=== PATIENT | male | born 1965 | race Caucasian/White ===

== ENCOUNTER 2019-02-15 07:01 | Inpatient (IN) | payer OTHER ==
[2019-02-15] MEDS ORDERED: METOCLOPRAMIDE 10 MG INJ (08:10)
[2019-02-15] MEDS ORDERED: FENTAnyl 50 MCG/ML VIAL (08:10)
[2019-02-15] MEDS ORDERED: LIDOCAINE 2% (SDV) 5 ML INJ (08:10)
[2019-02-15] MEDS ORDERED: MIDAZOLAM 1 MG/ML 2 ML INJ (08:10)
[2019-02-15] MEDS ORDERED: PROPOFOL 20 ML (08:10)
[2019-02-15] MEDS ORDERED: SUCCINYLCHOLINE CHLORIDE 100 MG/5 ML SYG IV (08:11)
[2019-02-15] MEDS ORDERED: ONDANSETRON 4 MG INJ (08:11)
[2019-02-15] MEDS ORDERED: CEFAZOLIN 1 GM INJ (08:11)
[2019-02-15] MEDS: SOD CHLORIDE 0.9% 1,000 ML IV (08:30)
[2019-02-15] MEDS ORDERED: CEFAZOLIN 2 GM/50 ML (PMX) 50 ML IVPB (08:30)
[2019-02-15] MEDS ORDERED: MIDAZOLAM 1 MG/ML 2 ML INJ IV (09:30)
[2019-02-15] MEDS ORDERED: LORAZEPAM 2 MG INJ IV (09:30)
[2019-02-15] MEDS ORDERED: HALOPERIDOL 5 MG INJ IV (09:30)
[2019-02-15] MEDS ORDERED: DIPHENHYDRAMINE 50 MG INJ IV (09:30)
[2019-02-15] MEDS ORDERED: FENTAnyl 50 MCG/ML VIAL IV ×2 (09:30)
[2019-02-15] MEDS ORDERED: HYDROmorphONE 1 MG/5 ML IV SYRINGE IV ×2 (09:30)
[2019-02-15] MEDS ORDERED: HYDROmorphONE 2 MG/ML SYG (09:51)
[2019-02-15] MEDS: D5W-0.45 NACL + KCL 20 MEQ 1,000 ML IV ×2 (12:57→14:55)
[2019-02-15] MEDS: LEVALBUTEROL (NEB) 1.25 MG/0.5 ML AMP HHN (13:22)
[2019-02-15] MEDS: LABETALOL HCL 20MG INJ IV ×2 (13:25→13:28)
[2019-02-15] MEDS: hydrALAzine 20 MG INJ IV ×2 (13:29→13:53)
[2019-02-15] MEDS: IPRATROPIUM (NEB) 0.5 MG/2.5 ML AMP HHN (13:31)
[2019-02-15] MEDS: ONDANSETRON 4 MG INJ IV ×2 (13:45→14:59)
[2019-02-15] MEDS: MEPERIDINE 25 MG INJ IV (13:45)
[2019-02-15] MEDS: morphine 2 MG INJ IV ×2 (14:59→20:05)
[2019-02-15] MEDS ORDERED: GLUCAGON 1 MG INJ IM (16:30)
[2019-02-15] MEDS ORDERED: GLUCOSE GEL 15 GRAM TUBE PO ×2 (16:30)
[2019-02-15] MEDS ORDERED: GLUCOSE GEL 15 GRAM TUBE BUCCAL (16:30)
[2019-02-15] MEDS ORDERED: DEXTROSE 50% 50 ML SYRINGE IV ×2 (16:30)
[2019-02-15] MEDS: INSULIN ASPART [NOVOLOG] 3 ML PEN SC ×3 (17:54→21:05)
[2019-02-15] MEDS ORDERED: RIVAROXABAN 20 MG TABLET PO (17:55)
[2019-02-15 19:12] LABS: CALCIUM 8.2 mg/dl (8.4-10.2)
[2019-02-15] MEDS: GABAPENTIN 300 MG CAP PO (21:02)
[2019-02-15] MEDS: INSULIN GLARGINE [LANTus] (100 UNITS/ML) SYG SC (21:04)
[2019-02-16 01:22] LABS: CALCIUM 8.2 mg/dl (8.4-10.2)
[2019-02-16] MEDS: D5W-0.45 NACL + KCL 20 MEQ 1,000 ML IV ×2 (01:57→12:30)
[2019-02-16] MEDS: ACCU-CHEK XX (02:00)
[2019-02-16 05:17] LABS: ADD MAN DIFF? NO
[2019-02-16 05:20] LABS: BASOPHILS % 0.3 % (0.0-2.0); EOSINOPHILS % 0.3 % (0.0-7.0); HEMATOCRIT 40.2 % (42.0-52.0); HEMOGLOBIN 12.8 g/dl (14.0-18.0); LYMPHOCYTES # 1.8 10^3/ul (0.8-2.9); LYMPHOCYTES % 17.1 % (15.0-51.0); MEAN CORPUSCULAR HEMOGLOBIN 27.8 pg (29.0-33.0); MEAN CORPUSCULAR HGB CONC 31.8 g/dl (32.0-37.0); MEAN CORPUSCULAR VOLUME 87.2 fl (82.0-101.0); MONOCYTE # 1.1 10^3/ul (0.3-0.9); MONOCYTES % 10.2 % (0.0-11.0); NEUTROPHIL # 7.6 10^3/ul (1.6-7.5); NEUTROPHILS % 71.7 % (39.0-77.0); PLATELET COUNT 281 10^3/UL (140-415); RED BLOOD COUNT 4.61 10^6/ul (4.70-6.10); RED CELL DISTRIBUTION WIDTH 13.2 % (11.5-14.5)
[2019-02-16 05:20] LABS: WHITE BLOOD COUNT 10.5 10^3/ul (4.8-10.8)
[2019-02-16 05:49] LABS: ANION GAP 5 (5-13); BLOOD UREA NITROGEN 19 mg/dl (7-20); CALCIUM 8.3 mg/dl (8.4-10.2); CARBON DIOXIDE 28 mmol/L (21-31); CHLORIDE 110 mmol/L (97-110); CREATININE 1.77 mg/dl (0.61-1.24); Estimated GFR 40 mL/min (>60); GLUCOSE 199 mg/dl (70-220); POTASSIUM 4.4 mmol/L (3.5-5.1); SODIUM 143 mmol/L (135-144)
[2019-02-16 05:49] LABS: CALCIUM 8.1 mg/dl (8.4-10.2)
[2019-02-16] MEDS: TAMSULOSIN (SR) 0.4 MG CAP PO (08:46)
[2019-02-16] MEDS: GABAPENTIN 300 MG CAP PO ×2 (08:46→20:39)
[2019-02-16] MEDS: FUROSEMIDE 20 MG TAB PO (08:47)
[2019-02-16] MEDS: AMLODIPINE 10 MG TAB PO (08:48)
[2019-02-16] MEDS: METOPROLOL (XL) 50 MG TAB PO (08:48)
[2019-02-16] MEDS: ACETAMINOPHEN 1000MG/100ML IV 100 ML IVPB (08:56)
[2019-02-16] MEDS ORDERED: NON-FORMULARY/PATIENT OWN MED (Dolutegravir/Rilpivirine (Juluca 50-25 mg Tablet) 1 EACH) PO (09:00)
[2019-02-16] MEDS: INSULIN ASPART [NOVOLOG] 3 ML PEN SC ×7 (09:02→20:38)
[2019-02-16] MEDS: RILPIVIRINE XX ×2 (10:00→17:57)
[2019-02-16] MEDS: DOLUTEGRAVIR XX ×2 (10:00→17:57)
[2019-02-16] MEDS: [UNRECOGNIZED DRUG - OTHER] XX ×2 (10:00→17:57)
[2019-02-16] MEDS: SOD CHLORIDE 0.45% 1,000 ML IV (14:27)
[2019-02-16 14:29] LABS: CALCIUM 8.7 mg/dl (8.4-10.2)
[2019-02-16] MEDS: hydrALAzine 20 MG INJ IV (20:40)
[2019-02-16] MEDS: INSULIN GLARGINE [LANTus] (100 UNITS/ML) SYG SC (20:41)
[2019-02-16] MEDS: morphine 2 MG INJ IV (22:21)
[2019-02-17] MEDS: ACCU-CHEK XX (02:00)
[2019-02-17] MEDS: [UNRECOGNIZED DRUG - OTHER] XX ×2 (02:00→10:00)
[2019-02-17] MEDS: DOLUTEGRAVIR XX ×2 (02:00→10:00)
[2019-02-17] MEDS: RILPIVIRINE XX ×2 (02:00→10:00)
[2019-02-17] MEDS: morphine 2 MG INJ IV ×2 (02:08→08:25)
[2019-02-17 05:19] LABS: ADD MAN DIFF? NO
[2019-02-17 05:26] LABS: WHITE BLOOD COUNT 10.5 10^3/ul (4.8-10.8)
[2019-02-17 05:26] LABS: BASOPHILS % 0.3 % (0.0-2.0); EOSINOPHILS # 0.1 10^3/ul (0.0-0.5); EOSINOPHILS % 0.9 % (0.0-7.0); HEMATOCRIT 43.6 % (42.0-52.0); LYMPHOCYTES # 1.8 10^3/ul (0.8-2.9); MEAN CORPUSCULAR HEMOGLOBIN 27.5 pg (29.0-33.0); MEAN CORPUSCULAR HGB CONC 32.1 g/dl (32.0-37.0); MEAN CORPUSCULAR VOLUME 85.7 fl (82.0-101.0); MONOCYTES % 9.5 % (0.0-11.0); NEUTROPHIL # 7.5 10^3/ul (1.6-7.5); NEUTROPHILS % 71.9 % (39.0-77.0); PLATELET COUNT 281 10^3/UL (140-415); RED BLOOD COUNT 5.09 10^6/ul (4.70-6.10); RED CELL DISTRIBUTION WIDTH 13.2 % (11.5-14.5)
[2019-02-17 06:02] LABS: ANION GAP 9 (5-13); BLOOD UREA NITROGEN 14 mg/dl (7-20); CALCIUM 8.6 mg/dl (8.4-10.2); CARBON DIOXIDE 29 mmol/L (21-31); CHLORIDE 106 mmol/L (97-110); CREATININE 1.48 mg/dl (0.61-1.24); Estimated GFR 49 mL/min (>60); GLUCOSE 195 mg/dl (70-220); SODIUM 144 mmol/L (135-144)
[2019-02-17 06:07] LABS: CALCIUM 7.7 mg/dl (8.4-10.2)
[2019-02-17] MEDS: hydrALAzine 20 MG INJ IV (06:20)
[2019-02-17] MEDS: SOD CHLORIDE 0.45% 1,000 ML IV (06:40)
[2019-02-17] MEDS: AMLODIPINE 10 MG TAB PO (07:03)
[2019-02-17] MEDS: METOPROLOL (XL) 50 MG TAB PO (07:04)
[2019-02-17] MEDS: FUROSEMIDE 20 MG TAB PO (07:04)
[2019-02-17] MEDS: INSULIN ASPART [NOVOLOG] 3 ML PEN SC ×4 (08:28→13:06)
[2019-02-17] MEDS: LORATADINE 10 MG TAB PO (08:29)
[2019-02-17] MEDS: TAMSULOSIN (SR) 0.4 MG CAP PO (08:29)
[2019-02-17] MEDS: GABAPENTIN 300 MG CAP PO (08:30)
[2019-02-17] MEDS ORDERED: hydrALAzine 20 MG INJ IV (12:00)
[2019-02-17] MEDS ORDERED: HYDROCODONE/APAP (5/325) TAB NGT (12:30)
[2019-02-17] MEDS: LISINOPRIL 10 MG TAB PO (13:04)
[2019-02-17] MEDS: HYDROCODONE/APAP (5/325) TAB NGT (13:04)
== END 2019-02-17 13:49 | disposition home or self-care (01) | DRG 626 ==
LOC: SDS 07:01 → REC 13:26 → MS1 14:37
PROVIDERS: Surgery Surgical Oncology
PROC: 0GTG0ZZ Resection of Left Thyroid Gland Lobe, Open Approach (ICD-10-PCS; principal; 2019-02-15 09:00)
PROC: 0GTH0ZZ Resection of Right Thyroid Gland Lobe, Open Approach (ICD-10-PCS; 2019-02-15 09:00)
PROC: 07B10ZX Excision of Right Neck Lymphatic, Open Approach, Diagnostic (ICD-10-PCS; 2019-02-15 09:00)
DX: C73 Malignant neoplasm of thyroid gland (principal); Z68.41 Body mass index [BMI] 40.0-44.9, adult; C77.9 Secondary and unspecified malignant neoplasm of lymph node, unspecified; E66.01 Morbid (severe) obesity due to excess calories; E78.5 Hyperlipidemia, unspecified; E11.9 Type 2 diabetes mellitus without complications; F32.9 Major depressive disorder, single episode, unspecified
CPT/HCPCS: 80048; 82310; 82962; 85025; 88307; 88331; 94664